=== PATIENT | female | born 1960 | race Caucasian/White ===

== ENCOUNTER 2024-01-28 00:38 | Emergency (ER) | payer BC ==
[~2024-01-28] VITALS: Ht 172.7 cm; Wt 65.5 kg
[2024-01-28 00:42] VITALS: TEMP 97.8
[2024-01-28 01:21] LABS: BASOPHILS # (AUTO) 0.1 X10'3 (0-0.2); BASOPHILS % (AUTO) 0.6 % (0-1); EOSINOPHILS # (AUTO) 0.1 X10'3 (0-0.9); EOSINOPHILS % (AUTO) 0.8 % (0-6); HEMATOCRIT 37.9 % (35.0-45.0); HEMOGLOBIN 12.8 g/dl (12.0-16.0); LYMPHOCYTES # (AUTO) 1.2 X10'3 (1.1-4.8); LYMPHOCYTES % (AUTO) 13.1 % (21-51); MEAN CORPUSCULAR HEMOGLOBIN 34.8 PG (27.0-31.0); MEAN CORPUSCULAR HGB CONC 33.8 g/dL (33.0-36.5); MEAN CORPUSCULAR VOLUME 103.1 FL (78-98); MEAN PLATELET VOLUME 7.6 FL (7.4-10.4); MONOCYTES # (AUTO) 0.7 X10'3 (0-0.9); MONOCYTES % (AUTO) 7.3 % (2-12); NEUTROPHILS # (AUTO) 7.2 X10'3 (1.8-7.7); NEUTROPHILS % (AUTO) 78.2 % (42-75); PLATELET COUNT 237 X10'3 (140-440); RED BLOOD COUNT 3.68 X10'6 (4.20-5.60); RED CELL DISTRIBUTION WIDTH 12.6 % (11.5-14.5); WHITE BLOOD COUNT 9.2 X10'3 (4.5-11.0)
[2024-01-28 01:24] LABS: ALANINE AMINOTRANSFERASE 69 U/L (12-78); ALBUMIN 3.6 G/DL (3.4-5.0); ALBUMIN/GLOBULIN RATIO 1.1 (1.1-1.5); ALKALINE PHOSPHATASE 102 IU/L (46-116); ANION GAP 14 (8-16); ASPARTATE AMINO TRANSFERASE 50 U/L (10-37); BILIRUBIN,TOTAL 0.4 MG/DL (0.1-1.0); BLOOD UREA NITROGEN 7 MG/DL (7-18); BUN/CREATININE RATIO 10.3 (10.0-20.0); CALCIUM 8.6 MG/DL (8.5-10.1); CHLORIDE 104 MMOL/L (99-107); CREATININE 0.68 MG/DL (0.40-0.90); GLUCOSE 107 MG/DL (70-104); LIPASE 63 U/L (16-77); POTASSIUM 3.8 MMOL/L (3.5-5.1); SODIUM 144 MMOL/L (135-145); TOTAL CARBON DIOXIDE 25.8 MMOL/L (24-32); eCRCL 84 ML/MIN; eGFR 87 ML/MIN
[2024-01-28 01:26] LABS: BILIRUBIN,URINE NEGATIVE (Neg); CLARITY,URINE CLOUDY (Clear); COLOR,URINE STRAW (Yellow); GLUCOSE, URINE NEGATIVE (Neg); KETONES,URINE NEGATIVE (Neg); LEUKOCYTE ESTERASE ,URINE LARGE (Neg); NITRITES, URINE POSITIVE (Neg); OCCULT BLOOD,URINE LARGE (Neg); PH,URINE 6.5 (4.8-8.0); PROTEIN,URINE 30 mg/dl (Neg); UROBILINOGEN,URINE 0.2 E.U/dL (0.2-1.0)
[2024-01-28] MEDS ORDERED: iohexol 300mg/ml 100ml inj. ONE (01:32)
[2024-01-28 01:41] LABS: UA COLLECTION TYPE CLN CATCH MIDSTREAM
[2024-01-28 01:44] LABS: BACTERIA,URINE 1+ /HPF (Neg); SQUAMOUS EPITHELIAL CELL,UR FEW /LPF (FEW)
[2024-01-28 01:47] LABS: WBC,URINE 50-100 /HPF (0-4)
[2024-01-28] MEDS: ondansetron/PF 4mg/2ml inj IV ONE (02:01)
[2024-01-28] MEDS: normal saline 1000ml 1,000 ML IV ONE (02:01)
[2024-01-28] MEDS: morphine 2 MG/ML inj. syringe IV ONE (02:02)
[2024-01-28] MEDS ORDERED: CEFD300C3 PO (02:19)
[2024-01-28] MEDS: CefTRIAXone/D5W-Rocephin 1gm 50 ML IV ONE (02:55)
[2024-01-28] MEDS ORDERED: HYDR-3965 PO (03:19)
[2024-01-28] MEDS ORDERED: ONDA-243 PO (03:21)
[2024-01-28] MEDS: HYDROmorphone 1 mg/ml syringe IV ONE (03:46)
[2024-01-28 03:56] VITALS: BP 125/77; PULSE 71; RESP 18; O2SAT 97
== END 2024-01-28 03:59 | disposition home or self-care (01) ==
LOC: ER 00:41
DX: N39.0 Urinary tract infection, site not specified (principal)
CPT/HCPCS: 36415; 74177; 80053; 81001; 83690; 85025; 87088; 87186; 96361; 96365; 96375; 99285; J0696; J1170; J2270; J2405; J7030; Q9967; 87077